=== PATIENT | female | born 1980 | race Caucasian/White ===

== ENCOUNTER 2017-01-08 16:51 | Emergency (ER) | payer OTHER ==
[~2017-01-08] VITALS: Ht 172.7 cm; Wt 116.4 kg
[~2017-01-08 16:51] MED LIST: ACETTAB3 OR; ALAVERT10 MG OR; DULERA1 AE1 IN; ELIMITE5 % EX; FLAGYL500 MG OR; LO LOESTRIN OR; LO LOESTRIN PO; LOPRESSOR25 M1 PO; LORTAB 5-325 MG1 TAB PO; MEDDOSEPAK OR; NAPROSYN500 MG PO; ROCEPHIN 2250 MG/VIA IM; SINGULAIR PO; TOPAMAX50 MG OR; VIBRAMYCIN100 M1 OR
[2017-01-08 18:10] LABS: HEMATOCRIT 45.1 % (37.0-47.0); IMMATURE GRANULOCYTES 0.3 % (0.0-1.0); MEAN CELL VOLUME 89.1 fL CALC (80.0-100.0); MEAN CORPUSCULAR HGB 29.6 pG CALC (26.0-32.0); MEAN CORPUSCULAR HGB CONC 33.3 g/L CALC (32.0-36.0); NEUT# 7.76 thou/uL (2.00-7.15); RED BLOOD COUNT 5.06 mill/uL (4.20-5.60)
[2017-01-08 18:11] LABS: URINE BILIRUBIN - DIPSTICK NEGATIVE (NEGATIVE); URINE BLOOD DIPSTICK NEGATIVE (NEGATIVE); URINE CLARITY CLEAR; URINE COLOR YELLOW; URINE GLUCOSE - DIPSTICK NEGATIVE (NEGATIVE); URINE KETONE NEGATIVE (NEGATIVE); URINE LEUK ESTERASE NEGATIVE (NEGATIVE); URINE NITRITE - DIPSTICK NEGATIVE (Negative); URINE PROTEIN - DIPSTICK TRACE mg/dL (NEG-TRACE)
[2017-01-08 18:34] LABS: ALBUMIN 4.6 g/dL (3.2-5.0); ALKALINE PHOSPHATASE 85 u/l (38-126); AMYLASE 56 u/l (30-110); ANION GAP 16 (6-22 (CALC)); BILIRUBIN, TOTAL 1.2 mg/dL (0.0-1.4); BUN 9 mg/dL (7-17); BUN/CREATININE RATIO 13 (12-20 (CALC)); CALCIUM 9.5 mg/dL (8.4-10.2); CARBON DIOXIDE 25 mmol/l (22-30); CHLORIDE 103 mmol/l (95-108); CREATININE 0.7 mg/dL (0.5-1.0); GFR > 60 ML/MIN (>=60 (CALC)); GFR FOR AFR.AMER. > 60 ML/MIN (>=60 (CALC)); GLUCOSE 103 mg/dL (65-105); LIPASE 91 u/l (23-300); SGOT/AST 24 u/l (14-36); SGPT/ALT 34 u/l (9-52); SODIUM 140 mmol/l (137-146); TOTAL PROTEIN 8.5 g/dL (6.3-8.2)
[2017-01-08] MEDS ORDERED: PREVACID30 M3 PO (19:54)
[2017-01-08] MEDS ORDERED: ULTRAM50 M1 PO (19:54)
[2017-01-08] MEDS ORDERED: PREVPAC PO (22:07)
[2017-01-08] MEDS ORDERED: LORTAB 10-325 M1 TAB PO (22:07)
[2017-01-08 22:30] VITALS: BP 128/78
== END 2017-01-08 23:00 | disposition home or self-care (01) | DRG 392 ==
LOC: ED 16:51
PROVIDERS: Emergency Medicine
DX: R10.13 Epigastric pain (principal); K27.9 Peptic ulcer, site unspecified, unspecified as acute or chronic, without hemorrhage or perforation; K29.70 Gastritis, unspecified, without bleeding; B96.81 Helicobacter pylori [H. pylori] as the cause of diseases classified elsewhere; R42 Dizziness and giddiness; R10.33 Periumbilical pain
CPT/HCPCS: Q9967; S0164